=== PATIENT | female | born 1990 | race Caucasian/White ===

== ENCOUNTER 2019-02-18 13:59 | Outpatient (CLI) | payer BC ==
[~2019-02-18] VITALS: Ht 157.5 cm; Wt 69.1 kg
--- NOTE | 2019-02-18 14:15 | NUR ---
Patient presents to labor and delivery with complaints of leaking of fluid. Patient denies any bleeding, denies contractions. Patient placed on monitor, SVE completed noted 0/50/-3. Patient tolerated well. Aminosure obtained and noted negative per swab with no color change. Full assesment completed. reviews FHR strip, discuss patient history, orders recieved to discharge patient.
[2019-02-18 14:18] VITALS: BP 108/72; PULSE 73; TEMP 97.6
[2019-02-18] MEDS ORDERED: PRENATAL MVI (14:26)
[2019-02-18 14:45] VITALS: BP 108/72; PULSE 73
== END 2019-02-18 14:45 | disposition home or self-care (01) ==
LOC: LDRO 13:59
DX: O88.113 Amniotic fluid embolism in pregnancy, third trimester (principal); Z3A.37 37 weeks gestation of pregnancy

== ENCOUNTER 2019-02-19 23:28 | Inpatient (IN) | payer BC ==
[~2019-02-19] VITALS: Ht 157.5 cm; Wt 69.1 kg
[~2019-02-19 23:28] MED LIST: PRENATAL MVI
--- NOTE | 2019-02-19 23:40 | NUR ---
2340- Pt arrived on unit via wheelchair escorted by and with complaints of SROM at 2200 with clear fluid. Pt reports occasional contractions, denies vaginal bleeding and reports normal movement. EFM and toco monitors started. Vital signs WNL. Amnio-test positive. SVE by this RN FT/50/-2 with clear fluid on exam. 0000- Spoke with Dr. Brody. FHR tracing reviewed. Orders for labor admission received. 0005- EFM intermittently tracing FHR. Unable to determine FHR vs maternal HR. EFM readjusted. 0020- Consents reviewed and signed. 0040- IV started and labs obtained.
[2019-02-19 23:50] VITALS: BP 118/73; PULSE 82; TEMP 97.7
[2019-02-20] VITALS (49 sets, daily range): BP systolic 91–126; BP diastolic 51–77; PULSE 58–104; TEMP 97.5–98.1
--- NOTE | 2019-02-20 00:46 | NUR ---
Pt off EFM to ambulate and use birthing ball per Dr. Brody's order.
[2019-02-20 01:21] LABS: BASO % 0.3 % (0.0-2.0); EOS # 0.1 (0.0-0.7); EOS % 0.6 % (0-4.0); GRAN # 4.9 (1.4-6.5); GRAN % 61.3 % (42.2-75.2); HEMOGLOBIN 10.9 g/dl (12.5-16.0); LYMPH # 2.2 (1.2-3.4); LYMPH % 27.6 % (20.0-51.0); MEAN CELL VOLUME 83 fl (80.0-100.0); MEAN CORPUSCULAR HEMOGLOBIN 26 pg (27.0-31.0); MEAN CORPUSCULAR HGB CONC 31 g/dl (33.0-37.0); MEAN PLATELET VOLUME 10.6 fl (7.4-10.4); MONO # 0.8 (0.1-0.6); MONO % 9.9 % (1.7-9.3); PLATELET COUNT 216 K/mm3 (130-400); RED BLOOD COUNT 4.21 M/mm3 (4.10-5.30); REDCELL DISTRIBUTION WIDTH-CV 14.7 % (11.5-14.5)
[2019-02-20 01:26] LABS: HEMATOCRIT 34.9 % (37.0-47.0)
--- NOTE | 2019-02-20 02:36 | NUR ---
Pitocin started per order and protocol. See EMAR for details.
--- NOTE | 2019-02-20 04:20 | NUR ---
0420- JENNIFFER Gusman at the bedside discussing epidural placement with scoliosis. 0430- Pt off EFM to the bathroom. 0435- [email or web address] Prather at the bedside for epidural placement. Pt sitting on the edge of the bed. SPO2 monitor started. EFM intermittently tracing maternal HR as coorelates with SPO2. 0450- EFM intermittently tracing maternal HR as coorelates with SPO2. RN remains at bedside during epidural placement. Frequent attempts to adjust EFM but difficult due to maternal position for epidural placement. 0505- RN remains at the bedside with frequent attempts to adjust EFM during epidural placement. 0520- RN remains at the bedside with frequent attempts to adjust EFM during epidural placement. 0530- Test dose done per RECONCILIATION SPECIALIST. See anesthesia record for details. 0540- Pt repositioned to supine position with left wedge. EFM and toco monitors adjusted.
--- NOTE | 2019-02-20 07:45 | NUR ---
Difficulty tracing heart rate during early decelerations with external monitor. Discussed option for FSE with patient, patient agrees. Place per protocol without difficulty by Mickey Jang RN. SVE /1.
--- NOTE | 2019-02-20 09:24 | NUR ---
Dr. Isidro on unit, reviewed FHR strip. Orders to continue pitocin augmentation.
--- NOTE | 2019-02-20 10:11 | NUR ---
Daisy Prather at bedside. See anesthesia record.
--- NOTE | 2019-02-20 10:40 | NUR ---
1035- Patient repositioned LL. FHR noted intermittently to 70 bpm with accelerations present. Will have physician review. 1040- SVE /0. Patient repositioned RL following exam. FHR deceleration noted to 60 bpm following repositioning, patient repositoned LL, oxygen via simple mask at 10L applied. See physician notification. Patient and updated on plan of care.
--- NOTE | 2019-02-20 11:15 | NUR ---
Dr. Isidro on unit. Reviews FHR strip. Will recheck patient shortly. Orders to continue to monitor at this time.
--- NOTE | 2019-02-20 11:55 | NUR ---
1155- Physician requested to perform SVE. Physician on unit and has been reviewing FHR strip. 1200- SVE per provider and face presentation noted at this time. Discussing plan of care with patient for indicated section. Patient agrees, see physician documentation. Erlin Prather CRNA notified. 1205- FSE removed prior to section. Erlin Prather CRNA at bedside. See anesthesia record. Ultrasound monitor replaced. Patient prepped for surgery, preop shave completed and periprep completed. 1211- Patient taken off EFM and transferred to OR. See intraoperative report.
[2019-02-21 00:15] VITALS: BP 111/61; PULSE 80; TEMP 98.1
--- NOTE | 2019-02-21 00:15 | NUR ---
Pt attempted to ambulate to the bathroom. Pt pale and reports feeling lightheaded and dizzy while sitting on the edge of the bed. Pt was able to stand next to the bed with assist x1 but not able to ambulate to the bathroom. Assisted pt back to bed. Pericare done.
[2019-02-21 05:00] VITALS: BP 97/56; PULSE 62
--- NOTE | 2019-02-21 05:00 | NUR ---
Pt up to the bathroom with standby assist and without complications. Nixon removed. Pericare done. Assisted pt back to bed.
[2019-02-21 07:30] VITALS: BP 103/68; PULSE 76; TEMP 98.4
--- NOTE | 2019-02-21 09:36 | NUR ---
Initial visit; Family thanked Application Technician for offering congratulations and God's blessings for the of their daughter. Application Technician thanked family for choosing [facility].
[2019-02-21 11:00] VITALS: BP 103/63; PULSE 78; TEMP 97.5
[2019-02-21 16:10] VITALS: BP 117/84; PULSE 68; TEMP 97.4
[2019-02-21 21:00] VITALS: BP 115/63; PULSE 84; TEMP 98
[2019-02-22 07:14] VITALS: BP 124/78; PULSE 84; TEMP 98.2
[2019-02-22] MEDS ORDERED: PERCOCET 325 MG1 TA2 PO (09:00)
[2019-02-22] MEDS ORDERED: IBU800 M1 PO (09:00)
[2019-02-22 16:26] VITALS: BP 114/68; PULSE 76; TEMP 98.1
[2019-02-23 09:00] VITALS: BP 109/62; PULSE 72; TEMP 98.2
--- NOTE | 2019-02-23 13:43 | NUR ---
Patient discharge instructions reviewed with with patient and . Script for percocet given and explained. Patient appointments reviewed. Patient and verbalize understanding.
== END 2019-02-23 13:55 | disposition home or self-care (01) | DRG 788 ==
LOC: LDRO 23:28 → OB 02-20 00:08 → LDR 02-20 00:08 → OB 02-20 13:45
PROVIDERS: Student in an Organized Health Care Education/Training Program; ADMIT Obstetrics & Gynecology
PROC: 10D00Z1 Extraction of Products of Conception, Low, Open Approach (ICD-10-PCS; principal; 2019-02-20)
DX: O32.3XX0 Maternal care for face, brow and chin presentation, not applicable or unspecified (principal); Z37.0 Single live birth; Z3A.37 37 weeks gestation of pregnancy; Z28.21 Immunization not carried out because of patient refusal
CPT/HCPCS: J0690; J1885; J2270; J2405; J2590; J2704; J3010; J7120